=== PATIENT | female | born 1950 | race Two or more races ===

== ENCOUNTER 2022-10-11 10:32 | Outpatient (CLI) | payer OTHER | END 2022-10-11 10:35 | disposition home or self-care (01) | LOC: RAD 10:32 | PROVIDERS: ATTEND Orthopaedic Surgery | DX: M25.561 Pain in right knee (principal); M25.562 Pain in left knee ==

== ENCOUNTER 2022-10-21 13:22 | Outpatient (CLI) | payer OTHER | END 2022-10-21 13:24 | disposition home or self-care (01) | LOC: NUCLEAR 13:22 | PROVIDERS: ATTEND Orthopaedic Surgery | DX: M85.9 Disorder of bone density and structure, unspecified (principal) ==